=== PATIENT | male | born 1975 | race Caucasian/White ===

== ENCOUNTER 2018-07-16 00:59 | Emergency (ER) | payer OTHER ==
[~2018-07-16] VITALS: Ht 182.9 cm; Wt 117.9 kg
[~2018-07-16 00:59] MED LIST: CYMBALTA30 MG PO; MEDROLDOSEPACK PO; NAPROSYN500 MG PO; ROBAXIN 750 MG750 M1 PO; TRAMADOL 50 MG50 MG PO
[2018-07-16] MEDS ORDERED: VENTOLIN HFA 1818 GM (01:10)
[2018-07-16 01:36] LABS: ABSOLUTE BASOPHILS 0.1 thou/uL (0.0-0.2); ABSOLUTE EOSINOPHILS 0.3 thou/uL (0.0-0.7); ABSOLUTE LYMPHOCYTES 2.8 thou/uL (0.8-5.3); ABSOLUTE MONOCYTES 0.9 thou/uL (0.0-1.2); BASOPHILS 0.6 %; EOSINOPHILS 2.2 %; HEMATOCRIT 44.6 % (42.0-52.0); HEMOGLOBIN 15.1 gm/dL (14.0-18.0); LYMPHOCYTES 18.3 %; MCH 29.6 pg (26.0-34.0); MCHC 33.8 g/dL (28.0-37.0); MCV 87.4 fL (80.0-100.0); MPV 8.4 fl. (7.2-11.1); NUCLEATED RBCS 0 /100WBC; PLATELET COUNT* 256 thou/uL (150-400); POLYS 72.9 %; RDW-CV 13.6 % (10.5-14.5); WBC 15.1 thou/uL (4.0-11.0)
[2018-07-16 01:41] LABS: ANION GAP 8 mmol/L (7-16); BUN 15 mg/dL (7-18); CALCIUM 8.5 mg/dL (8.5-10.1); CHLORIDE 100 mmol/L (98-107); CO2 28 mmol/L (21-32); CREATININE 1.2 mg/dL (0.6-1.3); GLUCOSE 144 mg/dL (70-99); POTASSIUM 3.9 mmol/L (3.5-5.1); SODIUM 136 mmol/L (136-145)
[2018-07-16 01:48] LABS: ALBUMIN 4.1 g/dL (3.4-5.0); ALKALINE PHOSPHATASE 96 U/L (46-116); SGOT 61 U/L (15-37); SGPT 67 U/L (30-65); TOTAL BILIRUBIN 0.3 mg/dL (<0.1-1.0); TOTAL PROTEIN 8.5 g/dL (6.4-8.2); TROPONIN-I LEVEL <0.06 ng/mL (<0.06)
[2018-07-16 02:58] LABS: URINE BILIRUBIN NEGATIVE (Negative); URINE CLARITY CLEAR; URINE COLOR STRAW; URINE GLUCOSE-RANDOM NEGATIVE (Negative); URINE KETONES NEGATIVE (Negative); URINE PROTEIN NEGATIVE (Negative); URINE SPECIFIC GRAVITY 1.005 (1.005-1.030)
[2018-07-16 02:59] LABS: URINE BLOOD 2+ (Negative); URINE LEUKOCYTES-REFLEX NEGATIVE (Negative); URINE NITRITE-REFLEX NEGATIVE (Negative); URINE UROBILINOGEN 0.2 E.U./dl (0.2-1.0)
[2018-07-16 03:10] LABS: FINE GRANULAR CASTS 0-3 Few /LPF (None Seen); HYALINE CASTS 0-3 Few /LPF (None Seen); MUCUS 4-6 Moderate strn/LPF (None Seen); SQUAMOUS 0-3 Few /LPF (0-3); URINE RBC 3-10 Few /HPF (0-2)
[2018-07-16 03:11] LABS: CRYSTALS None Seen /LPF (None Seen)
[2018-07-16 03:47] VITALS: BP 128/82
--- NOTE | 2018-07-16 10:25 | EKG ---
[place] [address] ELECTROCARDIOGRAM REPORT Name: RONIT SINGLETON Room: [facility]#: [id number] Admission: 07/16/18 Attend Phys: Discharge: 07/16/18 Date of : 79 Report #: [id number] THIS REPORT FOR: //name// [facility] ED Test Date: 2018-07-16 Test Time: 01:54:53 Pat Name: RONIT SINGLETON Department: Room: Gender: M [employer]: MIRANDA : 1975 Requested By: Camille Delgado Order Number: [id number] MD: Heladio Pride Measurements Intervals [place] Rate: 87 P: 36 HI: 174 QRS: 42 QRSD: 109 T: 13 QT: 365 QTc: 439 Interpretive Statements Sinus rhythm Baseline wander in lead(s) V1,V2 No previous ECG available for comparison Electronically Signed On 07-16-2018 10:25:40 CDT by Heladio Pride [email or web address] <ELECTRONICALLY SIGNED> By: Heladio Pride MD, [facility] 07/16/18 1025 D: [id number] Heladio Pride MD, FAC /EPI
== END 2018-07-16 03:49 | disposition home or self-care (01) ==
LOC: M.ERS 00:59
PROVIDERS: Emergency Medicine
DX: S42.001A Fracture of unspecified part of right clavicle, initial encounter for closed fracture (principal); S06.0X0A Concussion without loss of consciousness, initial encounter; V89.2XXA Person injured in unspecified motor-vehicle accident, traffic, initial encounter; Y93.89 Activity, other specified; Y92.89 Other specified places as the place of occurrence of the external cause; Y99.8 Other external cause status